=== PATIENT | male | born 1995 | race African-American/Black ===

== ENCOUNTER 2024-08-24 14:40 | Emergency (ER) | payer OTHER ==
[~2024-08-24] VITALS: Ht 162.6 cm; Wt 68.2 kg
[2024-08-24 15:02] VITALS: TEMP 98.3
[2024-08-24 17:20] LABS: ANION GAP 12 mmol/L (8-16); CARBON DIOXIDE 25 mmol/L (22-29); CHLORIDE 102 mmol/L (98-107); CREATININE 0.75 mg/dL (0.60-1.30); GLOMERULAR FILTR. RATE CALC > 60 mL/min (>60); GLUCOSE,RANDOM 88 mg/dL (70-110); SODIUM SERUM 139 mmol/L (136-145); UREA NITROGEN, BLOOD 8 mg/dL (7-18)
[2024-08-24 17:24] LABS: HEMATOCRIT 39.9 % (41-53); HEMOGLOBIN 13.8 g/dL (13.5-17.5); LACTATE DEHYDROGENASE 260 U/L (85-227); LIPASE 30 U/L (16-77); MEAN CORPUSCULAR HEMOGLOBIN 30.4 pg (26.0-34.0); MEAN CORPUSCULAR HGB CONC 34.6 G/dL (31.0-37.0); MEAN CORPUSCULAR VOLUME 88 fL (80-100); PLATELET COUNT (AUTO) 439 K/uL (150-450); RED BLOOD CELL COUNT(AUTO) 4.53 MIL/uL (4.50-5.90); RED CELL DISTRIBUTION WIDTH 17.2 % (11.5-14.5); RETICULOCYTE % (AUTO) 2.7 % (0.5-2.3); WHITE BLOOD COUNT (AUTO) 8.5 K/uL (4.5-11.0)
[2024-08-24 17:49] LABS: BAND NEUTROPHILS % (MANUAL) 4 % (0-5); BASOPHILS % (MANUAL) 1 % (0-2); EOSINOPHILS % (MANUAL) 1 % (1-6); LYMPHOCYTES % (MANUAL) 37 % (22-44); MONOCYTES % (MANUAL) 7 % (2-9); RBC MORPHOLOGY COMMENT NORMAL RBC MORPH; SEGMENTED NEUTROPHILS % 50 % (40-70); TOTAL CELLS COUNTED 100
[2024-08-24] MEDS: SODIUM CHLORIDE 0.9% 2,000 ML IV ONE (17:52)
[2024-08-24] MEDS: ONDANSETRON HCL 4 MG/2 ML VIAL IVP ONE (17:52)
[2024-08-24] MEDS: MORPHINE SULFATE 4 MG/ML SYRINGE IVP ONE ×2 (17:53→19:22)
[2024-08-24] MEDS: KETOROLAC TROMETHAMINE 30 MG/ML VIAL IVP ONE (19:21)
[2024-08-24] MEDS ORDERED: HYDR-4062 PO (19:48)
[2024-08-24 19:50] VITALS: BP 147/88; PULSE 80; RESP 18; O2SAT 99
[2024-08-24] MEDS: HYDROCODONE/ACETAMINOPHEN 5-325 MG TABLET PO ONE (20:04)
[2024-08-24 20:18] LABS: ALCOHOL, URINE DRUG SCREEN NEGATIVE (NEGATIVE); AMPHET/METH SCREEN,URINE NEGATIVE (NEGATIVE); BARBITURATE SCREEN, URINE NEGATIVE (NEGATIVE); BENZODIAZEPINES SCREEN,URINE NEGATIVE (NEGATIVE); CANNABINOID SCREEN,URINE POSITIVE (NEGATIVE); COCAINE SCREEN,URINE NEGATIVE (NEGATIVE); METHADONE SCREEN, URINE NEGATIVE (NEGATIVE); OPIATE SCREEN,URINE POSITIVE (NEGATIVE); PHENCYCLIDINE SCREEN,URINE NEGATIVE (NEGATIVE)
== END 2024-08-24 20:46 | disposition home or self-care (01) ==
LOC: EMS 14:40
DX: M79.661 Pain in right lower leg (principal); M79.662 Pain in left lower leg; D57.00 Hb-SS disease with crisis, unspecified; F12.90 Cannabis use, unspecified, uncomplicated; F17.210 Nicotine dependence, cigarettes, uncomplicated
CPT/HCPCS: 99284; 96374; 96361; 96375; 80048; 83605; 83615; 83690; 85025; 85045; 36415; 96376; 80307; J1885; J2270; J2405; J7030

== ENCOUNTER 2024-09-07 13:40 | Emergency (ER) | payer OTHER ==
[~2024-09-07] VITALS: Ht 162.6 cm; Wt 68.2 kg
[~2024-09-07 13:40] MED LIST: HYDR-4062 PO
[2024-09-07 13:43] VITALS: TEMP 98.5
[2024-09-07] MEDS ORDERED: HYDR500 PO (13:50)
[2024-09-07] MEDS ORDERED: FOLI0.4T6 PO (13:50)
[2024-09-07] MEDS ORDERED: DIVA-153 PO (13:50)
[2024-09-07] MEDS: HYDROCODONE/ACETAMINOPHEN 5-325 MG TABLET PO ONE (14:46)
[2024-09-07 14:59] LABS: BASOPHILS % (AUTO) 1.4 % (0.0-2.0); EOSINOPHILS % (AUTO) 4.8 % (1.0-6.0); HEMOGLOBIN 13.1 g/dL (13.5-17.5); LYMPHOCYTES % (AUTO) 43.4 % (22.0-44.0); MEAN CORPUSCULAR HEMOGLOBIN 30.4 pg (26.0-34.0); MEAN CORPUSCULAR HGB CONC 34.4 G/dL (31.0-37.0); MEAN CORPUSCULAR VOLUME 88 fL (80-100); MONOCYTES # (AUTO) 0.8 K/uL (0.1-1.0); MONOCYTES % (AUTO) 8.6 % (2.0-9.0); NEUTROPHILS # (AUTO) 3.9 K/uL (1.8-7.7); NEUTROPHILS % (AUTO) 41.8 % (40.0-70.0); PLATELET COUNT (AUTO) 413 K/uL (150-450); RED CELL DISTRIBUTION WIDTH 17.9 % (11.5-14.5); WHITE BLOOD COUNT (AUTO) 9.3 K/uL (4.5-11.0)
[2024-09-07 15:05] LABS: ANION GAP 10 mmol/L (8-16); CALCIUM, TOTAL 8.7 mg/dL (8.8-10.5); CARBON DIOXIDE 26 mmol/L (22-29); CHLORIDE 105 mmol/L (98-107); CREATININE 0.78 mg/dL (0.60-1.30); GLOMERULAR FILTR. RATE CALC > 60 mL/min (>60); GLUCOSE,RANDOM 92 mg/dL (70-110); POTASSIUM 4.2 mmol/L (3.5-5.1); SODIUM SERUM 141 mmol/L (136-145); UREA NITROGEN, BLOOD 9 mg/dL (7-18)
[2024-09-07 15:09] LABS: LACTATE DEHYDROGENASE 216 U/L (85-227)
[2024-09-07 15:24] VITALS: BP 137/71; PULSE 90; RESP 18; O2SAT 100
== END 2024-09-07 15:36 | disposition home or self-care (01) ==
LOC: EMS 13:41
DX: M79.605 Pain in left leg (principal); M79.604 Pain in right leg; D57.00 Hb-SS disease with crisis, unspecified; F12.90 Cannabis use, unspecified, uncomplicated; F17.210 Nicotine dependence, cigarettes, uncomplicated; Z88.0 Allergy status to penicillin
CPT/HCPCS: 80048; 83615; 85025; 99283

== ENCOUNTER 2024-10-10 14:19 | Emergency (ER) | payer OTHER ==
[~2024-10-10] VITALS: Ht 157.5 cm; Wt 68.0 kg
[~2024-10-10 14:19] MED LIST changes: +DIVA-153 PO; +FOLI0.4T6 PO; -HYDR-4062 PO; +HYDR500 PO
[2024-10-10] MEDS ORDERED: OLAN10TA74 PO (14:31)
[2024-10-10] MEDS ORDERED: OLAN15TA98 PO (14:31)
[2024-10-10] MEDS ORDERED: FOLI-130 PO (14:31)
[2024-10-10] MEDS: MORPHINE SULFATE 4 MG/ML SYRINGE IVP ONE (15:41)
[2024-10-10] MEDS: ONDANSETRON HCL 4 MG/2 ML VIAL IVP ONE (15:41)
[2024-10-10] MEDS: SODIUM CHLORIDE 0.9% 1,000 ML IV ONE (15:42)
[2024-10-10 15:58] LABS: BASOPHILS % (AUTO) 1.3 % (0.0-2.0); EOSINOPHILS % (AUTO) 1.5 % (1.0-6.0); HEMATOCRIT 41.2 % (41-53); HEMOGLOBIN 13.9 g/dL (13.5-17.5); LYMPHOCYTES # (AUTO) 2.3 K/uL (1.0-4.8); LYMPHOCYTES % (AUTO) 20.3 % (22.0-44.0); MEAN CORPUSCULAR HEMOGLOBIN 28.6 pg (26.0-34.0); MEAN CORPUSCULAR HGB CONC 33.8 G/dL (31.0-37.0); MEAN CORPUSCULAR VOLUME 85 fL (80-100); MONOCYTES # (AUTO) 0.7 K/uL (0.1-1.0); MONOCYTES % (AUTO) 6.5 % (2.0-9.0); NEUTROPHILS # (AUTO) 8.1 K/uL (1.8-7.7); NEUTROPHILS % (AUTO) 70.4 % (40.0-70.0); PLATELET COUNT (AUTO) 383 K/uL (150-450); RED BLOOD CELL COUNT(AUTO) 4.87 MIL/uL (4.50-5.90); RED CELL DISTRIBUTION WIDTH 18.4 % (11.5-14.5); RETICULOCYTE % (AUTO) 2.4 % (0.5-2.3); WHITE BLOOD COUNT (AUTO) 11.5 K/uL (4.5-11.0)
[2024-10-10 16:16] LABS: ANION GAP 10 mmol/L (8-16); CALCIUM, TOTAL 9.3 mg/dL (8.8-10.5); CARBON DIOXIDE 26 mmol/L (22-29); CHLORIDE 101 mmol/L (98-107); CREATININE 0.66 mg/dL (0.60-1.30); GLOMERULAR FILTR. RATE CALC > 60 mL/min (>60); GLUCOSE,RANDOM 90 mg/dL (70-110); POTASSIUM 4.3 mmol/L (3.5-5.1); SODIUM SERUM 137 mmol/L (136-145); UREA NITROGEN, BLOOD 10 mg/dL (7-18)
[2024-10-10 16:19] LABS: ERYTHROCYTE SEDIMENTATION RATE 2 MM/HR (0-15)
[2024-10-10 17:40] VITALS: BP 132/82; PULSE 77; RESP 18; TEMP 98.1; O2SAT 98
== END 2024-10-10 18:06 | disposition home or self-care (01) ==
LOC: EMS 14:20
DX: M79.604 Pain in right leg (principal); M79.605 Pain in left leg; G89.29 Other chronic pain; F12.90 Cannabis use, unspecified, uncomplicated; F17.210 Nicotine dependence, cigarettes, uncomplicated; Z88.0 Allergy status to penicillin; Z86.2 Personal history of diseases of the blood and blood-forming organs and certain disorders involving the immune mechanism
CPT/HCPCS: 99284; 96374; 96361; 96375; 80048; 85025; 85045; 85651; 36415; J2270; J2405; J7030

== ENCOUNTER 2024-12-13 08:36 | Inpatient (IN) | payer OTHER ==
[~2024-12-13] VITALS: Ht 152.4 cm; Wt 68.2 kg
[~2024-12-13 08:36] MED LIST changes: -DIVA-153 PO; +FOLI-130 PO; -FOLI0.4T6 PO; +OLAN10TA74 PO; +OLAN15TA98 PO
[2024-12-13] MEDS: MORPHINE SULFATE 4 MG/ML SYRINGE IVP ONE (09:19)
[2024-12-13] MEDS: SODIUM CHLORIDE 0.9% 1,000 ML IV ONE ×3 (10:06→15:13)
[2024-12-13] MEDS: HYDROmorphone HCL 2 MG/ML SYRINGE IVP ONE ×2 (10:06→12:30)
[2024-12-13 10:28] LABS: BASOPHILS % (AUTO) 1.2 % (0.0-2.0); EOSINOPHILS % (AUTO) 5.2 % (1.0-6.0); HEMATOCRIT 34.9 % (41-53); HEMOGLOBIN 12.5 g/dL (13.5-17.5); LYMPHOCYTES # (AUTO) 1.7 K/uL (1.0-4.8); LYMPHOCYTES % (AUTO) 22.5 % (22.0-44.0); MEAN CORPUSCULAR HEMOGLOBIN 31.6 pg (26.0-34.0); MEAN CORPUSCULAR HGB CONC 35.9 G/dL (31.0-37.0); MEAN CORPUSCULAR VOLUME 88 fL (80-100); MONOCYTES # (AUTO) 0.7 K/uL (0.1-1.0); MONOCYTES % (AUTO) 9.2 % (2.0-9.0); NEUTROPHILS # (AUTO) 4.7 K/uL (1.8-7.7); NEUTROPHILS % (AUTO) 61.9 % (40.0-70.0); PLATELET COUNT (AUTO) 421 K/uL (150-450); RED BLOOD CELL COUNT(AUTO) 3.96 MIL/uL (4.50-5.90); RED CELL DISTRIBUTION WIDTH 17.9 % (11.5-14.5); WHITE BLOOD COUNT (AUTO) 7.5 K/uL (4.5-11.0)
[2024-12-13 10:39] LABS: ANION GAP 5 mmol/L (8-16); CALCIUM, TOTAL 8.5 mg/dL (8.8-10.5); CARBON DIOXIDE 28 mmol/L (22-29); CHLORIDE 109 mmol/L (98-107); CREATININE 0.84 mg/dL (0.60-1.30); GLOMERULAR FILTR. RATE CALC > 60 mL/min (>60); GLUCOSE,RANDOM 83 mg/dL (70-110); POTASSIUM 4.3 mmol/L (3.5-5.1); SODIUM SERUM 142 mmol/L (136-145); UREA NITROGEN, BLOOD 11 mg/dL (7-18)
[2024-12-13 12:24] LABS: RETICULOCYTE % (AUTO) 4.6 % (0.5-2.3)
[2024-12-13] MEDS ORDERED: ONDANSETRON HCL 4 MG/2 ML VIAL IVP PRN (14:30)
[2024-12-13] MEDS ORDERED: ZOLPIDEM TARTRATE 5 MG TABLET PO PRN (14:30)
[2024-12-13] MEDS ORDERED: ACETAMINOPHEN 325 MG TABLET PO PRN (14:30)
[2024-12-13] MEDS ORDERED: BISACODYL 10 MG RECTAL RECTAL SUPPOSITORY PR PRN (14:30)
[2024-12-13] MEDS ORDERED: MAGNESIUM HYDROXIDE SUSPENSION 30 ML UDCUP PO PRN (14:30)
[2024-12-13] MEDS: HEPARIN SODIUM,PORCINE 5,000 UNITS/ML VIAL SQ SCH (15:14)
[2024-12-13 17:10] VITALS: BP 124/84; PULSE 65; RESP 18; TEMP 97.9; O2SAT 99
[2024-12-13 17:17] VITALS: BP 131/86; PULSE 56; RESP 18; TEMP 97.9; O2SAT 100
[2024-12-13 17:19] VITALS: BP 131/86; PULSE 56
[2024-12-13] MEDS: MORPHINE SULFATE 2 MG/ML SYRINGE IVP PRN (17:19)
[2024-12-13] MEDS ORDERED: MORP15TA70 PO (17:22)
[2024-12-13 20:00] VITALS: BP 110/72; PULSE 61; RESP 18; TEMP 97.5; O2SAT 95
[2024-12-13] MEDS: DOCUSATE SODIUM 100 MG CAPSULE PO SCH (20:16)
[2024-12-13 22:50] LABS: APPEARANCE,URINE CLEAR (CLEAR); BILIRUBIN,URINE NEGATIVE (NEGATIVE); COLOR,URINE LIGHT YELLOW (YELLOW); GLUCOSE, URINE (UA) NEGATIVE (NEGATIVE); KETONES,URINE NEGATIVE (NEGATIVE); LEUKOCYTE ESTERASE ,URINE NEGATIVE (NEGATIVE); NITRATE,URINE NEGATIVE (NEGATIVE); OCCULT BLOOD,URINE NEGATIVE (NEGATIVE); PROTEIN,URINE NEGATIVE (NEGATIVE); SPECIFIC GRAVITIY, URINE 1.012 (1.003-1.030)
[2024-12-13 22:55] LABS: ALCOHOL, URINE DRUG SCREEN NEGATIVE (NEGATIVE); AMPHET/METH SCREEN,URINE NEGATIVE (NEGATIVE); BARBITURATE SCREEN, URINE NEGATIVE (NEGATIVE); BENZODIAZEPINES SCREEN,URINE NEGATIVE (NEGATIVE); CANNABINOID SCREEN,URINE POSITIVE (NEGATIVE); COCAINE SCREEN,URINE NEGATIVE (NEGATIVE); METHADONE SCREEN, URINE NEGATIVE (NEGATIVE); OPIATE SCREEN,URINE POSITIVE (NEGATIVE); PHENCYCLIDINE SCREEN,URINE NEGATIVE (NEGATIVE)
[2024-12-13 23:06] LABS: RBC,URINE 0-2 /HPF (0-2); WBC,URINE 0-2 /HPF (0-5)
[2024-12-13 23:07] LABS: BACTERIA,URINE Few /HPF (None Seen); MUCUS,URINE Rare LPF (None Seen); SQUAMOUS EPITHELIAL CELL,UR Rare /LPF (None Seen)
[2024-12-14 03:24] VITALS: BP 115/73; PULSE 64; RESP 18; TEMP 97.5; O2SAT 100
[2024-12-14 08:06] LABS: BASOPHILS % (AUTO) 0.7 % (0.0-2.0); EOSINOPHILS % (AUTO) 10.1 % (1.0-6.0); HEMATOCRIT 35.7 % (41-53); HEMOGLOBIN 12.7 g/dL (13.5-17.5); LYMPHOCYTES # (AUTO) 2.2 K/uL (1.0-4.8); LYMPHOCYTES % (AUTO) 25.7 % (22.0-44.0); MEAN CORPUSCULAR HEMOGLOBIN 31.2 pg (26.0-34.0); MEAN CORPUSCULAR HGB CONC 35.4 G/dL (31.0-37.0); MEAN CORPUSCULAR VOLUME 88 fL (80-100); MONOCYTES # (AUTO) 0.7 K/uL (0.1-1.0); MONOCYTES % (AUTO) 8.1 % (2.0-9.0); NEUTROPHILS # (AUTO) 4.7 K/uL (1.8-7.7); NEUTROPHILS % (AUTO) 55.4 % (40.0-70.0); PLATELET COUNT (AUTO) 408 K/uL (150-450); RED BLOOD CELL COUNT(AUTO) 4.05 MIL/uL (4.50-5.90); RED CELL DISTRIBUTION WIDTH 17.6 % (11.5-14.5); WHITE BLOOD COUNT (AUTO) 8.4 K/uL (4.5-11.0)
[2024-12-14 08:16] LABS: ANION GAP 8 mmol/L (8-16); CALCIUM, TOTAL 8.8 mg/dL (8.8-10.5); CARBON DIOXIDE 25 mmol/L (22-29); CHLORIDE 108 mmol/L (98-107); GLOMERULAR FILTR. RATE CALC > 60 mL/min (>60); GLUCOSE,RANDOM 85 mg/dL (70-110); POTASSIUM 4.3 mmol/L (3.5-5.1); SODIUM SERUM 141 mmol/L (136-145); UREA NITROGEN, BLOOD 11 mg/dL (7-18)
[2024-12-14 08:42] VITALS: BP 117/91; PULSE 62; RESP 18; TEMP 97.5; O2SAT 100
[2024-12-14] MEDS: OLANZapine 10 MG TABLET PO SCH (09:21)
[2024-12-14] MEDS: PANTOPRAZOLE SODIUM 40 MG DR TABLET PO SCH (09:21)
[2024-12-14] MEDS: FOLIC ACID 1 MG TABLET PO SCH (09:21)
[2024-12-14] MEDS: SODIUM CHLORIDE 0.9% 1,000 ML IV ONE (12:25)
[2024-12-14 20:24] VITALS: BP 114/74; PULSE 58; RESP 18; TEMP 97.9; O2SAT 100
[2024-12-15 04:24] VITALS: BP 111/72; PULSE 57; RESP 18; TEMP 97.7; O2SAT 99
[2024-12-15 08:06] LABS: ANION GAP 6 mmol/L (8-16); CALCIUM, TOTAL 9.2 mg/dL (8.8-10.5); CARBON DIOXIDE 27 mmol/L (22-29); CHLORIDE 107 mmol/L (98-107); CREATININE 0.82 mg/dL (0.60-1.30); GLOMERULAR FILTR. RATE CALC > 60 mL/min (>60); GLUCOSE,RANDOM 81 mg/dL (70-110); POTASSIUM 4.6 mmol/L (3.5-5.1); SODIUM SERUM 140 mmol/L (136-145); UREA NITROGEN, BLOOD 10 mg/dL (7-18)
[2024-12-15] MEDS: HYDROCODONE/ACETAMINOPHEN 5-325 MG TABLET PO PRN (08:21)
[2024-12-15 08:43] LABS: EOSINOPHILS % (AUTO) 10.4 % (1.0-6.0); HEMATOCRIT 37.9 % (41-53); HEMOGLOBIN 13.4 g/dL (13.5-17.5); LYMPHOCYTES # (AUTO) 2.1 K/uL (1.0-4.8); LYMPHOCYTES % (AUTO) 23.9 % (22.0-44.0); MEAN CORPUSCULAR HEMOGLOBIN 31.4 pg (26.0-34.0); MEAN CORPUSCULAR HGB CONC 35.4 G/dL (31.0-37.0); MEAN CORPUSCULAR VOLUME 89 fL (80-100); MONOCYTES # (AUTO) 0.6 K/uL (0.1-1.0); MONOCYTES % (AUTO) 7.3 % (2.0-9.0); NEUTROPHILS # (AUTO) 4.9 K/uL (1.8-7.7); NEUTROPHILS % (AUTO) 56.4 % (40.0-70.0); PLATELET COUNT (AUTO) 406 K/uL (150-450); RED BLOOD CELL COUNT(AUTO) 4.27 MIL/uL (4.50-5.90); RED CELL DISTRIBUTION WIDTH 17.8 % (11.5-14.5); WHITE BLOOD COUNT (AUTO) 8.7 K/uL (4.5-11.0)
[2024-12-15 08:54] VITALS: BP 109/72; PULSE 65; RESP 20; TEMP 98.1; O2SAT 100
[2024-12-15] MEDS ORDERED: MORP15TA70 PO (10:07)
== END 2024-12-15 17:15 | disposition home or self-care (01) | DRG 662 ==
LOC: EMS 08:45 → EDH 14:14 → 6S 16:45 → 4E 12-14 19:45
PROVIDERS: ADMIT Internal Medicine; ATTEND Internal Medicine
DX: D57.00 Hb-SS disease with crisis, unspecified (principal); F17.210 Nicotine dependence, cigarettes, uncomplicated; M79.604 Pain in right leg; M79.605 Pain in left leg; Z88.0 Allergy status to penicillin
CPT/HCPCS: 71045; 80048; 80307; 81001; 85025; 85045; 96361; 96374; 96375; 96376; 99285; G0378; J1171; J1644; J2270; J7030; 36415-L1; 36415-TC

== ENCOUNTER 2025-01-28 08:23 | Inpatient (IN) | payer OTHER ==
[~2025-01-28] VITALS: Ht 152.4 cm; Wt 68.2 kg
[~2025-01-28 08:23] MED LIST changes: -HYDR500 PO; +MORP15TA70 PO; -OLAN15TA98 PO
[2025-01-28] MEDS ORDERED: HYDR500 PO (08:31)
[2025-01-28] MEDS: MORPHINE SULFATE 4 MG/ML SYRINGE IVP ONE (08:56)
[2025-01-28] MEDS: SODIUM CHLORIDE 0.9% 1,000 ML IV ONE (08:57)
[2025-01-28] MEDS: ACETAMINOPHEN 500 MG TABLET PO ONE (08:57)
[2025-01-28 08:59] LABS: PLATELET COUNT (AUTO) 388 K/uL (150-450); RED BLOOD CELL COUNT(AUTO) 4.43 MIL/uL (4.50-5.90); RED CELL DISTRIBUTION WIDTH 21.9 % (11.5-14.5); WHITE BLOOD COUNT (AUTO) 7.3 K/uL (4.5-11.0)
[2025-01-28 09:06] LABS: CALCIUM, TOTAL 9.3 mg/dL (8.8-10.5); CREATININE 0.90 mg/dL (0.60-1.30); GLOMERULAR FILTR. RATE CALC > 60 mL/min (>60); GLUCOSE,RANDOM 132 mg/dL (70-110); SODIUM SERUM 138 mmol/L (136-145); UREA NITROGEN, BLOOD 8 mg/dL (7-18)
[2025-01-28 09:13] LABS: COVID AG,FIA SOURCE NASAL SWAB
[2025-01-28 09:34] LABS: SARS-COV2 (COVID) ANTIGEN,FIA Negative (Negative)
[2025-01-28] MEDS ORDERED: MAGNESIUM HYDROXIDE SUSPENSION 30 ML UDCUP PO PRN (12:45)
[2025-01-28] MEDS ORDERED: ACETAMINOPHEN 325 MG TABLET PO PRN (12:45)
[2025-01-28] MEDS ORDERED: POTASSIUM CHL 10 MEQ/WATER 50 ML IV PRN (12:45)
[2025-01-28] MEDS ORDERED: MORPHINE SULFATE 4 MG/ML SYRINGE IVP PRN (12:45)
[2025-01-28] MEDS ORDERED: ONDANSETRON HCL 4 MG/2 ML VIAL IVP PRN (12:45)
[2025-01-28] MEDS ORDERED: OxyCODONE HCL/ACETAMINOPHEN 5-325 MG TABLET PO PRN (12:45)
[2025-01-28] MEDS ORDERED: MORP15TA70 PO (12:50)
[2025-01-28 13:12] VITALS: BP 120/83; PULSE 60; RESP 18; TEMP 97.7; O2SAT 95
[2025-01-28] MEDS: FOLIC ACID 1 MG TABLET PO SCH (13:50)
[2025-01-28] MEDS: SODIUM CHLORIDE 0.9% 1,000 ML IV SCH (13:50)
[2025-01-28] MEDS: MORPHINE SULFATE 2 MG/ML SYRINGE IVP PRN (13:58)
[2025-01-28] MEDS: POTASSIUM CHLORIDE 20 MEQ ER TABLET PO PRN (14:07)
[2025-01-28 16:01] VITALS: BP 109/73; PULSE 54; RESP 18; TEMP 97.5; O2SAT 100
[2025-01-28] MEDS: HEPARIN SODIUM,PORCINE 5,000 UNITS/ML VIAL SQ SCH (16:29)
[2025-01-28 17:59] LABS: APPEARANCE,URINE CLEAR (CLEAR); GLUCOSE, URINE (UA) NEGATIVE (NEGATIVE); LEUKOCYTE ESTERASE ,URINE NEGATIVE (NEGATIVE); NITRATE,URINE NEGATIVE (NEGATIVE); OCCULT BLOOD,URINE NEGATIVE (NEGATIVE); SPECIFIC GRAVITIY, URINE 1.014 (1.003-1.030)
[2025-01-28 19:46] VITALS: BP 137/78; PULSE 59; RESP 18; TEMP 97.5; O2SAT 99
[2025-01-28] MEDS: DOCUSATE SODIUM 100 MG CAPSULE PO SCH (20:15)
[2025-01-29 02:35] VITALS: BP 118/86; PULSE 55; RESP 16; TEMP 97.5; O2SAT 100
[2025-01-29 03:57] VITALS: BP 113/75; PULSE 52; RESP 18; TEMP 97.3; O2SAT 100
[2025-01-29 07:31] VITALS: BP 120/87; PULSE 56; RESP 18; TEMP 97.7; O2SAT 100
[2025-01-29] MEDS: FAMOTIDINE 20 MG TABLET PO SCH (08:50)
[2025-01-29 17:10] VITALS: BP 129/82; PULSE 58; RESP 18; TEMP 98.2; O2SAT 98
[2025-01-29 19:28] VITALS: BP 131/89; PULSE 67; RESP 18; TEMP 98.2; O2SAT 100
[2025-01-29 20:08] LABS: INFLUENZA TYPE A NEGATIVE FOR TYPE A (NEGATIVE); INFLUENZA TYPE B NEGATIVE FOR TYPE B (NEGATIVE)
[2025-01-30 03:35] VITALS: BP 140/93; PULSE 55; RESP 18; TEMP 98.2; O2SAT 98
[2025-01-30 08:34] VITALS: BP 132/92; PULSE 63; RESP 18; TEMP 98.1; O2SAT 100
[2025-01-30] MEDS ORDERED: HYDR-4072 PO (11:32)
== END 2025-01-30 13:00 | disposition home or self-care (01) | DRG 662 ==
LOC: EMS 08:24 → EDH 11:50 → 6S 13:13
PROVIDERS: ADMIT Internal Medicine; ATTEND Internal Medicine
DX: D57.00 Hb-SS disease with crisis, unspecified (principal); E87.6 Hypokalemia; Z20.822 Contact with and (suspected) exposure to COVID-19; F17.210 Nicotine dependence, cigarettes, uncomplicated; Z88.0 Allergy status to penicillin
CPT/HCPCS: 80048; 81003; 84132; 85025; 85045; 87804; 96361; 96374; 96375; 99285; G0378; J1171; J1644; J2270; J7030; 36415-L1; 36415-TC

== ENCOUNTER 2025-04-06 08:53 | Inpatient (IN) | payer OTHER ==
[~2025-04-06] VITALS: Ht 162.6 cm; Wt 68.2 kg
[~2025-04-06 08:53] MED LIST changes: +HYDR-4072 PO; +HYDR500 PO; -MORP15TA70 PO
[2025-04-06 09:42] LABS: PLATELET COUNT (AUTO) 489 K/uL (150-450); RED BLOOD CELL COUNT(AUTO) 3.78 MIL/uL (4.50-5.90); RED CELL DISTRIBUTION WIDTH 16.3 % (11.5-14.5); WHITE BLOOD COUNT (AUTO) 6.9 K/uL (4.5-11.0)
[2025-04-06 09:55] LABS: CALCIUM, TOTAL 9.0 mg/dL (8.8-10.5); CREATININE 0.72 mg/dL (0.60-1.30); GLOMERULAR FILTR. RATE CALC > 60 mL/min (>60); GLUCOSE,RANDOM 99 mg/dL (70-110); SODIUM SERUM 142 mmol/L (136-145); UREA NITROGEN, BLOOD 8 mg/dL (7-18)
[2025-04-06] MEDS: MORPHINE SULFATE 4 MG/ML SYRINGE IVP ONE ×2 (10:00→11:05)
[2025-04-06] MEDS: SODIUM CHLORIDE 0.9% 1,000 ML IV ONE (10:01)
[2025-04-06] MEDS ORDERED: ZOLPIDEM TARTRATE 5 MG TABLET PO PRN (12:15)
[2025-04-06] MEDS ORDERED: ACETAMINOPHEN 325 MG TABLET PO PRN (12:15)
[2025-04-06] MEDS ORDERED: ONDANSETRON HCL 4 MG/2 ML VIAL IVP PRN (12:15)
[2025-04-06] MEDS ORDERED: OxyCODONE HCL/ACETAMINOPHEN 5-325 MG TABLET PO PRN (12:15)
[2025-04-06] MEDS ORDERED: MAGNESIUM HYDROXIDE SUSPENSION 30 ML UDCUP PO PRN (12:15)
[2025-04-06] MEDS: SODIUM CHLORIDE 0.9% 1,000 ML IV SCH (14:04)
[2025-04-06] MEDS: FOLIC ACID 1 MG TABLET PO SCH (14:04)
[2025-04-06 14:21] LABS: APPEARANCE,URINE CLEAR (CLEAR); GLUCOSE, URINE (UA) NEGATIVE (NEGATIVE); LEUKOCYTE ESTERASE ,URINE NEGATIVE (NEGATIVE); NITRATE,URINE NEGATIVE (NEGATIVE); OCCULT BLOOD,URINE NEGATIVE (NEGATIVE); SPECIFIC GRAVITIY, URINE 1.011 (1.003-1.030)
[2025-04-06 15:21] VITALS: BP 126/80; PULSE 77; RESP 18; TEMP 97.9; O2SAT 100
[2025-04-06] MEDS: MORPHINE SULFATE 4 MG/ML SYRINGE IVP PRN (16:12)
[2025-04-06] MEDS ORDERED: INFLUENZA VIRUS VACCINE TVS (6MO+) 2025-26/PF 45 MCG/0.5 ML SYRINGE IM. ONE (17:45)
[2025-04-06 20:00] VITALS: BP 110/72; PULSE 61; RESP 18; TEMP 97.7; O2SAT 100
[2025-04-06] MEDS: DOCUSATE SODIUM 100 MG CAPSULE PO SCH (20:07)
[2025-04-07 05:00] VITALS: BP 108/71; PULSE 73; RESP 18; TEMP 97.7; O2SAT 98
[2025-04-07 08:20] VITALS: BP 110/71; PULSE 63; RESP 18; TEMP 97.7; O2SAT 100
[2025-04-07] MEDS: FAMOTIDINE 20 MG TABLET PO SCH (08:40)
[2025-04-07 15:35] VITALS: BP 106/69; PULSE 62; RESP 18; TEMP 98.1; O2SAT 100
[2025-04-07 20:37] VITALS: BP 110/64; PULSE 58; RESP 17; TEMP 97.5; O2SAT 100
[2025-04-08 04:23] VITALS: BP 101/65; PULSE 60; RESP 17; TEMP 97.5; O2SAT 100
[2025-04-08 07:25] VITALS: BP 124/77; PULSE 78; RESP 18; TEMP 97.5; O2SAT 100
== END 2025-04-08 12:22 | disposition home or self-care (01) | DRG 662 ==
LOC: EMS 08:55 → EDH 12:14 → 6N 14:49
PROVIDERS: ADMIT Internal Medicine; ATTEND Internal Medicine
DX: D57.00 Hb-SS disease with crisis, unspecified (principal); F17.200 Nicotine dependence, unspecified, uncomplicated; Z88.0 Allergy status to penicillin; Z79.899 Other long term (current) drug therapy
CPT/HCPCS: 80048; 81003; 85025; 85045; 96361; 96374; 96375; 99285; J2270; J7030; 36415-L1; 36415-TC